=== PATIENT | female | born 1970 | race African-American/Black ===

== ENCOUNTER 2017-05-12 13:44 | Emergency (ER) | payer MEDICAID ==
[~2017-05-12] VITALS: Ht 165.1 cm; Wt 108.9 kg
[~2017-05-12 13:44] MED LIST: ATEN-60
[2017-05-12] MEDS ORDERED: SODIUM CHLORIDE 0.9% 1,000 ML IV ONE ×2 (14:49)
[2017-05-12 15:52] LABS: Basophils # (auto) 0 uL; Basophils % (auto) 0.1 % (0.0-2.0); CONDITION Y; Eosinophils # (auto) 0 uL; Eosinophils % (auto) 0.1 % (0.0-7.0); Hematocrit 41.4 % (36.0-46.0); Lymphocytes # (auto) 1.5 uL; Lymphocytes % (auto) 8.9 % (10.0-50.0); Mean Corpuscular Hemoglobin 30.5 pg (28.0-32.0); Mean Corpuscular Hgb Conc. 33.8 g/dL (32.0-36.0); Mean Corpuscular Volume 90.2 fL (80.0-100.0); Mean Platelet Volume 8.6 fL (7.4-10.4); Monocytes # (auto) 1.1 uL; Monocytes % (auto) 6.4 % (0.0-12.0); Neutrophils # (auto) 14.6 uL; Neutrophils % (auto) 84.5 % (37.0-80.0); Platelet Count (auto) 360 10^3/uL (140-450); Red Cell Distribution Width 14.2 % (11.6-16.0); White Blood Cell 17.3 10^3/uL (4.4-10.8)
[2017-05-12 15:55] LABS: INR 1.02 (0.9-1.15); Partial Thromboplastin Time 22.6 sec (22.64-33.71); Prothrombin Time 11.1 sec (9.37-12.3)
[2017-05-12 16:11] LABS: Albumin 3.1 g/dL (3.4-5.0); BUN/Creatinine Ratio 14.4; Bilirubin, Total 0.7 mg/dL (0.2-1.0); Calcium 8.8 mg/dL (8.5-10.1); Potassium 3.4 mmol/L (3.5-5.1); Total Protein 6.5 g/dL (6.4-8.2)
[2017-05-12 16:45] VITALS: BP 169/119
== END 2017-05-12 17:14 | disposition short-term general hospital (02) ==
LOC: EDUNIT# 13:44 → ER 13:51
DX: S01.01XA Laceration without foreign body of scalp, initial encounter (principal); R11.10 Vomiting, unspecified; I11.0 Hypertensive heart disease with heart failure; I50.9 Heart failure, unspecified; M25.512 Pain in left shoulder; M79.602 Pain in left arm; M25.551 Pain in right hip; M79.605 Pain in left leg; Z88.6 Allergy status to analgesic agent; V43.62XA Car passenger injured in collision with other type car in traffic accident, initial encounter; Y93.89 Activity, other specified; Y92.89 Other specified places as the place of occurrence of the external cause; Y99.8 Other external cause status
CPT/HCPCS: 36415; 70140; 70450; 70486; 71111; 72040; 72125; 72170; 73030; 73502; 80053; 84484; 85025; 85610; 85730; 96360; 96361